=== PATIENT | male | born 1990 | race Caucasian/White ===

== ENCOUNTER 2021-05-16 11:43 | Emergency (ER) | payer OTHER ==
[~2021-05-16 11:43] MED LIST: DOXYCYCLINE HY100 M2 PO; EXPECTORANT200 MG PO; FLONASE 0.05% N16 GM; IBUPROFEN600 MG PO; PERCOCET 5-3251 EACH PO; POLYTRIM EYE DR10 ML OP; TAMIFLU75 MG PO; VENTOLIN HFA 66.7 GM INH; ZOFRAN4 MG PO; ZYRTEC10 MG PO
[2021-05-16 13:36] LABS: HEMOGLOBIN 15.8 gm/dl (14.0-17.5); RED BLOOD COUNT 5.18 M/UL (4.20-5.50); WHITE BLOOD COUNT 11.9 K/UL (4.5-11.0)
[2021-05-16 14:10] LABS: BUN/CREATININE RATIO 20 (0-10)
[2021-05-16] MEDS ORDERED: PHENERGAN 12.12.5 M1 PO (20:01)
== END 2021-05-16 20:30 | disposition home or self-care (01) ==
LOC: ER1 11:43
PROVIDERS: Physician Assistant
DX: R10.10 Upper abdominal pain, unspecified (principal); R11.2 Nausea with vomiting, unspecified; F17.200 Nicotine dependence, unspecified, uncomplicated; Z20.822 Contact with and (suspected) exposure to COVID-19; R10.816 Epigastric abdominal tenderness; R23.1 Pallor
CPT/HCPCS: 80053; 81001; 83690; 85025; 96374; 96375; 99284; C9113; J2405; Q9967; U0002